=== PATIENT | female | born 1995 | race Caucasian/White ===

== ENCOUNTER 2017-08-04 12:05 | Emergency (ER) | payer MEDICAID, OTHER ==
[~2017-08-04] VITALS: Ht 167.6 cm; Wt 79.6 kg
[2017-08-04 12:08] VITALS: BP 132/75; PULSE 86; RESP 18; TEMP 98.1; O2SAT 100
--- NOTE | 2017-08-04 13:10 | PD ---
HPI Chief Complaint: Musculoskeletal Complaint Time Seen by Provider: 12:42 Travel History International Travel<30 days: No Contact w/Intl Traveler<30days: No Traveled to known affect area: No History of Present Illness HPI Patient comes to the emergency department complaint of right ankle pain that began last night after she rolled her ankle. Patient reports that she went to step on a slanted driveway when she rolled her ankle. Patient complaining of having an aching sensation over the lateral aspect of the right ankle. Denies any radiation of pain. Pain is worse with palpation and walking. Patient reports that she received a unknown shot for pain prior to coming to the emergency department seemed to help. Denies any numbness tingling or . PFSH Past Medical History Medical History: Denies Significant Hx Tetanus Vaccination: > 5 Years Influenza Vaccination: No ?: Not LMP: 07/04/17 Past Surgical History Tonsillectomy: Yes Social History Alcohol Use: Yes (occ) Tobacco Use: No Substance Use: Yes (mj) Allergies-Medications (Allergen,Severity, Reaction): Coded Allergies: No Known Allergies (Unverified , 08/04/17) Reported Meds & Prescriptions Reported Meds & Active Scripts Active No Active Prescriptions or Reported Medications Review of Systems Except as stated in HPI: all other systems reviewed are Neg Physical Exam Narrative GENERAL: Well-developed, overly nourished, in no acute distress, and non-ill appearing. SKIN: Focused skin assessment warm and dry. HEAD: Atraumatic. Normocephalic. EYES: Pupils equal and round. EOMI. No scleral icterus. No injection or drainage. ENT: No nasal bleeding or discharge. Mucous membranes pink and moist. NECK: Trachea midline. Supple. No nuclear rigidity. CARDIOVASCULAR: Dorsal pulses 2+, intact, and equal bilaterally. Capillary refill less than 2 seconds. RESPIRATORY: No accessory muscle use. No respiratory distress. MUSCULOSKELETAL: No obvious deformities. No clubbing. No cyanosis. No edema. Full range of motion. Ankle: Neagative anterior draw and Gurrola test. Negative Tiffanie's sign. No laxity noted with passive inversion and eversion of BL ankles. Negative squeeze test. Pulses equal BL distal to injury. Capillary refill less than 2 seconds distal to injury and equal BL. Sensation equal BL 1st web space. FROM of toes distal to injury and equal BL. NV intact distal to injury and equal BL. Dorsal pulses equal BL. Patient reports tenderness to palpation over lateral aspect of right ankle. There is soft tissue swelling. No crepitus. NEUROLOGICAL: Awake and alert. No obvious cranial nerve deficits. Motor grossly within normal limits. Normal speech. PSYCHIATRIC: Appropriate mood and affect; insight and judgment normal. Data Data Last Documented VS Vital Signs Date Time Temp Pulse Resp B/P (MAP) Pulse Ox O2 Delivery O2 Flow Rate FiO2 08/04/17 12:08 98.1 86 18 132/75 (94) 100 Orders Orders Ankle, Complete (Enk1yty) (08/04/17 ) Ice/Cold Pack (08/04/17 12:43) Ed Discharge Order (08/04/17 14:27) Splint Or Brace Apply/Monitor (08/04/17 14:27) Brace Ankle Stirrup (08/04/17 ) [facility] Medical Decision Making Medical Screen Exam Complete: Yes Emergency Medical Condition: Yes Interpretation(s) Last Impressions Ankle X-Ray 08/04/17 0000 Signed Impressions: Service Date/Time: Friday, August 04, 2017 13:18 - CONCLUSION: 1. Soft tissue swelling overlying the lateral malleolus without acute fracture or dislocation. Alvaro Romero MD Differential Diagnosis Fracture, sprain, contusion, dislocation Narrative Course There is no clinical evidence for fracture. There is no clinical evidence to suspect bony injury by exam. Radiographic examination revealed no fracture seen at this time. No obvious ligamental injury or internal derangement is noted at this time. The distal extremity appears neurovascularly intact, without evidence of neurovascular injury nor compartment syndrome. Tendon exam also was intact. The effected limb was splinted. The patient was discharged with sprain and splint care instructions and given warnings for vascular compromise. The patient is to follow up with primary care provider or orthopedics. The patient agrees with plan. Patient in no obvious distress upon re-evaluation. All pertinent Radiology result(s) discussed with patient. Any questions/concerns in reference to patient diagnosis/condition discussed and clarified prior to patient's discharge. Reinforced sheer importance of close follow up with patient's primary physician or primary care clinic. Instructed patient to return to ED immediately, if symptoms return/worsen. Patient showed understanding of above instructions. Further instructions and recommendations were detailed in discharge paperwork. Patient ambulated without difficulty out of ED at discharge. Diagnosis Primary Impression: Right ankle sprain Qualified Codes: S93.401A - Sprain of unspecified ligament of right ankle, initial encounter Referrals: Abad Sanders MD Patient Instructions: Ankle Sprain (ED), Ankle Sprain Exercises (GEN), Ankle Stirrup Splint (ED), General Instructions Additional Instructions: Follow-up with your primary care physician and/or orthopedic in 3-5 days for reevaluation. Use [id number] Tylenol and I Profen as needed for pain. Follow instructions on the packaging. Apply ice to affected area 20 min/h as needed for pain. Wear ankle stirrup as needed for comfort until reevaluated. Return to the emergency department if symptoms get worse. Scripts No Active Prescriptions or Reported Meds Disposition: 01 DISCHARGE HOME Condition: Stable Franky Oconnor Aug 04, 2017 13:10
--- NOTE | 2017-08-04 14:10 | RADRPT ---
EXAM DATE/TIME: 08/04/2017 13:18 [place] COMPARISON: No previous studies available for comparison. INDICATIONS : Lateral right ankle swelling since twisting it last night. MEDICAL HISTORY : None. SURGICAL HISTORY : None. ENCOUNTER: Initial ACUITY: 1 day PAIN SCORE: 8/10 LOCATION: Right lateral ankle. FINDINGS: Three view exam was performed of the right ankle. The bony structures are in normal alignment. No e vidence of fracture or dislocation. Swelling overlying the lateral malleolus. The ankle mortise is in tact. No radiopaque foreign bodies are seen. Bony mineralization is normal. CONCLUSION: 1. Soft tissue swelling overlying the lateral malleolus without acute fracture or dislocation. Alvaro Romero MD on August 04, 2017 at 14:07 Board Certified Radiologist. This report was verified electronically.
== END 2017-08-04 14:55 | disposition home or self-care (01) ==
LOC: PHEFT 12:05
DX: S93.401A Sprain of unspecified ligament of right ankle, initial encounter (principal); X50.1XXA Overexertion from prolonged static or awkward postures, initial encounter
CPT/HCPCS: 73610; 99283; L1906